=== PATIENT | male | born 1995 | race Caucasian/White ===

== ENCOUNTER 2020-11-13 17:20 | Emergency (ER) | payer MEDICAID ==
[~2020-11-13] VITALS: Ht 172.7 cm; Wt 79.5 kg
[2020-11-13 17:37] VITALS: BP 118/68
--- NOTE | 2020-11-13 17:43 | NUR ---
FIELD SPLINT IN PLACE FROM SKI RESORT Addendum: 11/13/20 at 1743 by [email or web address] PATIENT UNABLE TO STAND ON SCALE AND STATED WEIGHT
--- NOTE | 2020-11-13 18:01 | NUR ---
ASSISTANT CREDIT MANAGER: PT TO ROOM FROM LOBBY
--- NOTE | 2020-11-13 18:09 | NUR ---
PT SKIING AND SWERVED TO AVOID A PERSON. PT BELIEVES THE SKI DID NOT SNAP OFF AND CAUSED HIS KNEE TO TWIST. PT HEARD A POP. MD AT BEDSIDE REMOVING MAKESHIFT CARDBOARD SPLINT. CLOTHES REMOVED. ICE PACK IN PLACE. TO BE MEDICATED FOR PAIN AND AWAITING XRAY
[2020-11-13] MEDS ORDERED: IBUPROFEN 600 MG TABLET ONE (18:27)
[2020-11-13] MEDS ORDERED: IBUPROFEN 200 MG TABLET PO ONE (18:30)
--- NOTE | 2020-11-13 18:54 | NUR ---
BEDSIDE REPORT FROM GIAN ESTRADA, ASSUMMING CARE OF PT AT THIS TIME
--- NOTE | 2020-11-13 19:20 | NUR ---
KNEE IMOBILIZER APPLIED PT PROVIDED CRUTCHES STS HE HAS USED THEM BEFORE.
--- NOTE | 2020-11-13 19:36 | NUR ---
Patient/Caregiver given discharge instructions and they have confirmed that they understand the instructions. Patient ambulatory with steady gait while using crutches
== END 2020-11-13 19:47 | disposition home or self-care (01) ==
LOC: ED 18:32
DX: M25.462 Effusion, left knee (principal); X50.0XXA Overexertion from strenuous movement or load, initial encounter; Y93.89 Activity, other specified; Y92.89 Other specified places as the place of occurrence of the external cause; Y99.8 Other external cause status
CPT/HCPCS: 29505; 99283